=== PATIENT | female | born 1965 | race Caucasian/White ===

== ENCOUNTER → 2016-09-04 | Outpatient (CLI) | payer BC ==
--- NOTE | 2016-09-05 14:49 | MM ---
Reason for exam: screening (asymptomatic). Last mammogram was performed 1 year ago. History: Patient is nulliparous. Family history of breast cancer in mother at age 84. Physical Findings: A clinical breast exam by your physician is recommended on an annual basis and results should be correlated with mammographic findings. MG 3D Screening Mammo W/Cad Bilateral CC and MLO view(s) were taken. Prior study comparison: September 03, 2015, bilateral MG 3d screening mammo w/cad. August 21, 2014, bilateral MG diagnostic mammo w CAD YANIRA. August 18, 2013, CAD bilateral diagnostic mammogram. The breast tissue is extremely dense which could obscure a lesion on mammography. No significant changes when compared with prior studies. ASSESSMENT: Negative, BI-RAD 1 RECOMMENDATION: Routine screening mammogram of both breasts in 1 year. Patient should continue monthly self breast exam. A negative mammogram should not preclude additional follow up of suspicious palpable abnormality.
== END | disposition home or self-care (01) ==
LOC: RADMAMWWP 15:02
PROVIDERS: ATTEND Family Medicine
DX: Z12.31 Encounter for screening mammogram for malignant neoplasm of breast (principal); Z80.3 Family history of malignant neoplasm of breast
CPT/HCPCS: 77063; G0202

== ENCOUNTER → 2017-10-09 | Outpatient (CLI) | payer BC ==
--- NOTE | 2017-10-13 10:29 | MM ---
Reason for exam: screening (asymptomatic). Last mammogram was performed 1 year and 1 month ago. History: Patient is nulliparous. Family history of breast cancer in mother at age 84. Physical Findings: A clinical breast exam by your physician is recommended on an annual basis and results should be correlated with mammographic findings. MG 3D Screening Mammo W/Cad Bilateral CC and MLO view(s) were taken. Prior study comparison: September 04, 2016, bilateral MG 3d screening mammo w/ cad. September 03, 2015, bilateral MG 3d screening mammo w/cad. The breast tissue is extremely dense which could obscure a lesion on mammography. Very dense tissues. No significant changes when compared with prior studies. ASSESSMENT: Negative, BI-RAD 1 RECOMMENDATION: 1. Routine screening mammogram of both breasts in 1 year. 2. Patient should continue monthly self breast exams. 3. A negative mammogram should not preclude additional follow of suspicious palpable abnormalities. HALIMA
== END | disposition home or self-care (01) ==
LOC: RADMAMWWP 15:28
PROVIDERS: ATTEND Surgery
DX: Z12.31 Encounter for screening mammogram for malignant neoplasm of breast (principal)
CPT/HCPCS: 77063; 77067

== ENCOUNTER → 2018-10-29 | Outpatient (CLI) | payer BC ==
[2018-10-29 15:06] VITALS: BP 132/85; PULSE 64; RESP 16; TEMP 96.2; BMI 19.8
--- NOTE | 2018-10-29 15:42 | P.GSHP ---
History of Present Illness H&P Date: 10/29/18 Chief Complaint: fibrocystic disease Kaylene is a 53-year-old white female who presents for breast examination. She had a bilateral mammogram performed on . This was a negative BIRADS 1. The patient denies any masses in her breast. She has no pain in her breasts. No nipple discharge or skin changes. She is scheduled for a bilateral mammogram on . The patient does drink one cup of coffee per day. She is presently weaning herself from caffeine. She does not eat chocolate frequently. Karis Risk 5 year risk: 2.3% lifetime risk: 19.3% We have discussed genetic evaluation or counseling for chemoprevention at this time the patient is not interested. Family history: 1.mother: breast cancer at 85 Hormonal history: Menarche:14 : none menopause: November 2015, at 51 BCP: 2 years hormones: none Past surgical history: 1. wisdom teeth Past Medical History: negative Social History: smoke: none alcohol:daily/3-4 beers/day drugs: none - Constitutional Constitutional: Reports sweats - EENT Eyes: Ears: Ears, nose, mouth and throat: Denies headache, Denies sore throat - Breasts Breasts: - Cardiovascular Cardiovascular: Denies chest pain, Denies shortness of breath - Respiratory Respiratory: Denies cough, Denies 7 - Gastrointestinal Gastrointestinal: Denies abdominal pain, Denies diarrhea, Denies nausea, Denies vomiting - Genitourinary (Female) Genitourinary: Denies dysuria, Denies hematuria - Menstruation Menstruation: Reports postmenopausal - Musculoskeletal Musculoskeletal: Denies myalgias - Integumentary Integumentary: Reports pruritus, Denies rash - Neurological Neurological: Denies numbness, Denies weakness - Psychiatric Psychiatric: Reports anxiety, Denies depression - Endocrine Endocrine: Denies fatigue, Denies weight change - Hematologic/Lymphatic Comment: none - Allergic/Immunologic Comment: atopic dermatitis Past Medical History History of Any Multi-Drug Resistant Organisms: None Reported Smoking Status: Never smoker Medications and Allergies Home Medications Medication Instructions Recorded Confirmed Type Multivitamin [Multivitamins Adult 1 each PO 10/29/18 History Gummies] Allergies Allergy/AdvReac Type Severity Reaction Status Date / Time tetracycline [Tetracycline] Allergy Unknown Rash/Hives Verified 10/29/18 15:07 Surgical - Exam Vital Signs Temp Pulse Resp BP Pulse Ox 96.2 F L 64 16 132/85 100 10/29/18 15:03 10/29/18 15:03 10/29/18 15:03 10/29/18 15:03 10/29/18 15:03 BMI 19.8 - General well developed, well nourished, no distress - Eyes normal ocular movement - ENT no hearing loss, no congestion - Neck no masses, trachea midline - Respiratory normal respiratory effort, clear to auscultation - Cardiovascular Rhythm: regular Heart Sounds: - Abdomen Abdomen: soft, non tender, no guarding, no rigid, no rebound - Integumentary no rash, no abnormal pigmentation - Neurologic no disoriented, no combative - Musculoskeletal normal gait - Psychiatric oriented to time, oriented to person, oriented to place, speech is normal, memory intact breast exam: Right breast: Multi-positional exam dense fibrocystic breast changes, increased nodularity upper outer quadrant area most likely consistent with a cyst Right axilla: No adenopathy of concern Left breast: Multi-positional exam fibrocystic breast changes Left axilla: No adenopathy of concern Assessment and Plan Assessment: Impression: 1. Family history of breast cancer 2. Fibrocystic breast changes 3. Increased nodularity right breast upper outer quadrant area 4. increased risk for breast cancer Plan: 1. Patient is going to have a bilateral mammogram on 2. Would recommend ultrasound of the right breast 3. Consider aspiration of right breast upper outer quadrant area after radiographs are performed 4. Follow-up after mammogram and ultrasound performed 5. Patient is going to stop caffeine intake. Discussed that this may help with fibrocystic breast changes 6. Patient is not interested in genetic counseling for chemoprevention at this time CC: Dr. Colin
== END | disposition home or self-care (01) ==
LOC: WWCWWP 14:53
PROVIDERS: ATTEND Surgery
DX: Z53.9 Procedure and treatment not carried out, unspecified reason (principal)

== ENCOUNTER → 2018-11-04 | Outpatient (CLI) | payer BC ==
--- NOTE | 2018-11-04 09:47 | MM ---
Reason for exam: additional evaluation requested from prior study. Last mammogram was performed 1 year and 1 month ago. History: Patient is postmenopausal and is nulliparous. Family history of breast cancer in mother at age 84. Physical Findings: Nurse Summary: 1.5cm nodule in the right breast at 10-11 o'clock and a 1cm nodule in the left breast at 1 o'clock (nurse mj). MG 3D Diag Mammo W/Cad YANIRA Bilateral CC and MLO view(s) were taken. Prior study comparison: October 09, 2017, bilateral MG 3d screening mammo w/cad. September 04, 2016, bilateral MG 3d screening mammo w/cad. The breast tissue is extremely dense which could obscure a lesion on mammography. Finding: There are typically benign round, regional calcifications in the upper outer quadrant of both breasts. There is no dominant lesion. These results were verbally communicated with the patient and result sheet given to the patient on 11/04/18. ASSESSMENT: Incomplete: need additional imaging evaluation, BI-RAD 0 RECOMMENDATION: Ultrasound of both breasts. (extensive dense tissue and palpables)
--- NOTE | 2018-11-04 09:54 | USB ---
Reason for exam: additional evaluation requested from abnormal screening. History: Patient is postmenopausal and is nulliparous. Family history of breast cancer in mother at age 84. US Breast Limited BILAT Right complete breast ultrasound includes all four quadrants, the retroareolar region and axilla. Finding demonstrates a 0.7 x 0.8 x 0.3cm oval, cystic lesion at 10 o'clock. Left limited breast ultrasound including focal area of concern, retroareolar and axilla demonstrates no cystic or solid lesion seen. No findings. Dense tissue. These results were verbally communicated with the patient and result sheet given to the patient on 11/04/18. ASSESSMENT: Benign, BI-RAD 2 RECOMMENDATION: Routine screening mammogram of both breasts in 1 year.
== END | disposition home or self-care (01) ==
LOC: RADMAMWWP 07:43
PROVIDERS: ATTEND Surgery
DX: R92.8 Other abnormal and inconclusive findings on diagnostic imaging of breast (principal)
CPT/HCPCS: 77062; 77066

== ENCOUNTER → 2019-11-07 | Outpatient (CLI) | payer BC ==
--- NOTE | 2019-11-08 07:00 | CT ---
EXAMINATION TYPE: CT abdomen pelvis w con DATE OF EXAM: 11/07/2019 HISTORY: Abdominal and pelvic pain. Abdominal pain for over [address] DLP: 371.8mGycm Automated Exposure Control for Dose Reduction was Utilized. CONTRAST: CT scan of the abdomen and pelvis is performed with oral and with IV Contrast, patient injected with 100ml mL of Isovue 300. COMPARISON: None. FINDINGS: LUNG BASES: No significant abnormality is appreciated. LIVER/GB: No significant abnormality is appreciated. PANCREAS: No significant abnormality is seen. SPLEEN: No significant abnormality is seen. ADRENALS: No significant abnormality is seen. KIDNEYS: Symmetric cortical medullary uptake and excretion without hydronephrosis seen bilaterally. BOWEL: The oral contrast reaches level of the proximal redundant sigmoid colon. There is no suspiciou s small or large bowel dilatation. Normal contrast-filled appendix extending medially from the base o f cecum in the right pelvis. UTERUS/ADNEXA: Heterogeneous anteverted uterus. Normal-sized ovaries and the adnexa. LYMPH NODES: No greater than 1cm abdominal or pelvic lymph nodes are appreciated. OSSEOUS STRUCTURES: Advanced disc space narrowing lumbosacral junction. Moderate disc space narrowing with moderate to severe anterior and left lateral spurring L2-L3 level. Left paracentral posterior d isc herniation effaces the anterior thecal sac at this level axial image 28. Few scattered small scle rotic foci right iliac bone coronal image 44 and left superior pelvic ramus near acetabulum coronal i mage 27 and a nonspecific favor benign bone islands. Asymmetric moderate acetabular spurring left hip joint with mild to moderate joint space loss both hips. OTHER: No significant additional abnormality is seen. IMPRESSION: No significant acute finding is seen to account for patient's clinical symptoms of abdomi nal pain..
== END | disposition home or self-care (01) ==
LOC: RADCTMAIN 14:42
PROVIDERS: ATTEND Family Medicine
DX: R10.9 Unspecified abdominal pain (principal)
CPT/HCPCS: 74177; Q9967

== ENCOUNTER 2020-04-12 22:31 | Emergency (ER) | payer BC ==
[2020-04-12 22:41] VITALS: RESP 18
[2020-04-12] MEDS ORDERED: diphenhydrAMINE 50 MG CAP PO STA (23:05)
--- NOTE | 2020-04-12 23:10 | ED ---
Skin/Abscess/FB HPI - General Chief complaint: Skin/Abscess/Foreign Body Stated complaint: Poison Charito Time Seen by Provider: 04/12/20 22:47 Source: patient Mode of arrival: ambulatory Limitations: no limitations - History of Present Illness Initial comments: Patient is a 55-year-old female presenting to the emergency department with chief complaint of poison charito. Patient states earlier today she was picking weeds and took a warm shower and afterwards she developed a rash on bilateral hands and forearms. Patient states it is quite itchy but it is not painful. She denies any discharge. States this is not erythematous. Denies any fevers or chills. Denies taking medication to alleviate the symptoms. Patient is concerned for poison charito but denies any formation of vesicles on the lesions. States the symptoms were increased after she took a warm shower. - Related Data Home Medications Medication Instructions Recorded Confirmed Multivitamin [Multivitamins Adult 1 each PO 10/29/18 Gummies] Previous Rx's Medication Instructions Recorded predniSONE 50 mg PO DAILY #5 tab 04/12/20 Allergies Allergy/AdvReac Type Severity Reaction Status Date / Time tetracycline [Tetracycline] Allergy Unknown Rash/Hives Verified 04/12/20 22:41 Review of Systems ROS Statement: Those systems with pertinent positive or pertinent negative responses have been documented in the HPI. ROS Other: All systems not noted in ROS Statement are negative. Past Medical History Past Medical History: No Reported History History of Any Multi-Drug Resistant Organisms: None Reported Past Surgical History: No Surgical Hx Reported Past Psychological History: No Psychological Hx Reported Smoking Status: Never smoker Past Alcohol Use History: Occasional Past Drug Use History: None Reported General Exam Limitations: no limitations General appearance: alert, in no apparent distress Head exam: Present: atraumatic, normocephalic, normal inspection Eye exam: Present: normal appearance, PERRL, EOMI Pupils: Present: normal accommodation ENT exam: Present: normal exam, normal oropharynx, mucous membranes moist Neck exam: Present: normal inspection, full ROM. Absent: tenderness Respiratory exam: Present: normal lung sounds bilaterally. Absent: respiratory distress, wheezes Cardiovascular Exam: Present: regular rate, normal rhythm, normal heart sounds Extremities exam: Present: normal inspection, full ROM. Absent: tenderness Back exam: Present: normal inspection, full ROM. Absent: tenderness Neurological exam: Present: alert, oriented X3 Psychiatric exam: Present: normal affect, normal mood Skin exam: Present: warm, dry, intact, normal color, rash (Rash in bilateral upper extremities up to the forearm. No vesicle formation or any discharge. This is not consistent with poison charito. Intermittent wheal formation. These do not appear to be infected.), urticaria Course Vital Signs 04/12/20 04/12/20 22:38 23:30 Temperature 97.9 F 97.5 F L Pulse Rate 80 91 Respiratory 18 18 Rate Blood Pressure 126/88 134/92 O2 Sat by Pulse 99 100 Oximetry Medical Decision Making - Medical Decision Making Patient is a 55-year-old female presenting to the emergency department with a chief complaint of poison charito. On exam there is intermittent wheal formation and bilateral upper extremity. She was pulling weeds out today and developed the rash several hours later after she took a shower. This is not consistent with poison charito which typically is a delayed hypersensitivity reaction. This appears to more urticaria-like in nature. Patient given Benadryl and 60 mg of prednisone. She was advised to take cool showers at home. She'll also be discharged with a 5 day prednisone course. Strict return parameters thoroughly discussed the patient was understanding ago. Case discussed with physician. Disposition Clinical Impression: Hives, Rash and nonspecific skin eruption Disposition: HOME SELF-CARE Condition: Stable Instructions (If sedation given, give patient instructions): Urticaria (ED), Cold Compress or Soak (ED) Additional Instructions: Take prescribed medication as directed. Take Tylenol for itching. Follow-up with her primary care physician. Return to emergency department if symptoms worsen. Prescriptions: predniSONE 50 mg PO DAILY #5 tab Is patient prescribed a controlled substance at d/c from ED?: No Referrals: Toan Colin DO [Primary Care Provider] - 1-2 days Time of Disposition: 23:24
[2020-04-12] MEDS ORDERED: predniSONE 20 MG TAB PO STA (23:22)
[2020-04-12 23:32] VITALS: BP 134/92; PULSE 91; TEMP 97.5
== END 2020-04-12 23:38 | disposition home or self-care (01) ==
LOC: EC 22:31
DX: L50.9 Urticaria, unspecified (principal); Z88.1 Allergy status to other antibiotic agents
CPT/HCPCS: 99282; J7512

== ENCOUNTER → 2021-06-27 | Outpatient (CLI) | payer BC ==
--- NOTE | 2021-07-01 09:54 | MM ---
Reason for exam: screening (asymptomatic). Last mammogram was performed 1 year and 1 month ago. History: Patient is postmenopausal and is nulliparous. Family history of breast cancer in mother at age 84. Physical Findings: A clinical breast exam by your physician is recommended on an annual basis and results should be correlated with mammographic findings. MG 3D Screening Mammo W/Cad Bilateral CC and MLO view(s) were taken. Prior study comparison: May 28, 2020, bilateral MG 3d screening mammo w/cad. November 04, 2018, bilateral MG 3d diag mammo w/cad YANIRA. The breast tissue is extremely dense which could obscure a lesion on mammography. Finding: There are diffuse/scattered, fine calcifications in the left breast. No significant changes in finding since May 28, 2020 and November 04, 2018. ASSESSMENT: Benign, BI-RAD 2 RECOMMENDATION: Routine screening mammogram of both breasts in 1 year.
== END | disposition home or self-care (01) ==
LOC: RADMAMWWP 13:38
PROVIDERS: ATTEND Surgery
DX: Z12.31 Encounter for screening mammogram for malignant neoplasm of breast (principal); Z80.3 Family history of malignant neoplasm of breast; Z78.0 Asymptomatic menopausal state
CPT/HCPCS: 77063; 77067

== ENCOUNTER → 2021-06-28 | Day surgery (SDC) | payer BC ==
[2021-06-27 08:52] VITALS: BMI 18.5
[~2021-06-28] MED LIST: LACTATED RINGERS 1,000 ML IV SCH; LIDOCAINE 1% (10MG/ML) FOR IV START INTRADERMA PRN; LIDOCAINE 1% INJ 10MG/ML (20 ML MDV) ONE; PROPOFOL 10 MG/ML 20 ML VIAL IV ONE
--- NOTE | 2021-06-28 09:51 | P.HPIHPCON ---
History of Present Illness H&P Date: 06/28/21 56-year-old female presents today for upper endoscopy. She has had recent finding of dysphagia with feeling as if pills are being lodged in the back of her throat. She states this does not happen all the time. She denies any significant heartburn issues. She does complain of excessive belching. Denies abdominal pain. Consent for Procedure: I have explained the operation/procedure to the patient, including the risks, benefits, side effects, alternative therapies (including not receiving the proposed treatment or service), the likelihood of the patient achieving his/her goals, and potential recuperation problems for the procedure/sedation/analgesia, as well as any blood products, if indicated. I also explained to the patient the risks, benefits and side effects of the alternatives, as well as the risks related to not receiving the proposed procedure, care, treatment, or services. - Review of Systems All systems: negative Past Medical History Past Medical History: Skin Disorder Additional Past Medical History / Comment(s): ECZEMA. FOOD GETS STUCK IN THROAT AT TIMES History of Any Multi-Drug Resistant Organisms: None Reported Past Surgical History: No Surgical Hx Reported Additional Past Surgical History / Comment(s): WISDOM TEETH UNDER ANESTHESIA. COLONOSCOPY Past Anesthesia/Blood Transfusion Reactions: No Reported Reaction Smoking Status: Never smoker - Past Family History Mother Family Medical History: Cancer Additional Family Medical History / Comment(s): BREAST Medications and Allergies Home Medications Medication Instructions Recorded Confirmed Type Dupilumab [Dupixent Pen] 300 mg SQ Q14D 06/27/21 06/28/21 History L.acidoph,Paracasei, B.lactis 1 each PO DAILY 06/27/21 06/28/21 History [Probiotic] Allergies Allergy/AdvReac Type Severity Reaction Status Date / Time tetracycline [Tetracycline] Allergy Unknown Rash/Hives Verified 06/28/21 09:41 Surgical - Exam Osteopathic Statement: *. No significant issues noted on an osteopathic structural exam other than those noted in the History and Physical/Consult. - General well nourished - Eyes normal ocular movement - ENT no hearing loss - Neck trachea midline - Respiratory normal respiratory effort - Abdomen Abdomen: soft, non tender Assessment and Plan Plan: Plan is for upper endoscopy. Risks, benefits and alternatives were provided to patient. She did provide consent. Further recommendations after procedure is completed.
--- NOTE | 2021-06-28 10:01 | P.PCN ---
Date of Procedure: 06/28/21 Preoperative Diagnosis: Dysphagia Postoperative Diagnosis: Gastritis Duodenitis Procedure(s) Performed: EGD with biopsy Anesthesia: DEVEN Surgeon: Todd Bernardo Pathology: other (Biopsies of esophagus, antrum, duodenum) Condition: stable Disposition: same day Indications for Procedure: 56-year-old female presents with complaints of dysphagia with pills getting stuck in the back of her throat. States this does not happen all the time. Denies any seen and heartburn issues. Also complains of belching. Operative Findings: Inflammatory changes of the stomach/antrum, duodenum Description of Procedure: The patient was brought to the endoscopy suite and placed in left lateral decubitus position and adequate sedation was achieved using conscious sedation. A bite block was placed and an endoscope was placed in the oropharynx and advanced under endoscopic visualization. The endoscope was advanced through the esophagus into the stomach, through the gastric antrum and into the pylorus. The third portion of the duodenum was visualized. The endoscope was then slowly withdrawn. The first portion the duodenum was noted to have inflammatory changes. Biopsies were taken. The antrum was noted to have inflammatory changes. Biopsies were taken. The gastric body distended normally and the gastric folds appeared normal and flattened with insufflation. A retroflexed view of the fundus and GE junction revealed no significant hiatal hernia. The esophagus appeared endoscopically normal and widely patent. No evidence of stenosis or stricture of the entire esophagus. Excess air was removed and the scope was withdrawn and the procedure was completed. The patient was then sent to postanesthesia care unit in stable condition.
[2021-06-28 10:28] VITALS: BP 142/89; PULSE 75; RESP 18
== END | disposition home or self-care (01) ==
LOC: ORWHC2ENDO 08:48
PROVIDERS: ATTEND Surgery
DX: K29.70 Gastritis, unspecified, without bleeding (principal); K29.80 Duodenitis without bleeding; K20.90 Esophagitis, unspecified without bleeding
CPT/HCPCS: 43239; 88305; J2001; J2704

== ENCOUNTER → 2021-07-04 | Outpatient (CLI) | payer BC ==
[2021-07-04 14:58] VITALS: BP 126/78; PULSE 63; RESP 16; TEMP 98.1
--- NOTE | 2021-07-04 15:31 | P.PN ---
Subjective Progress Note Date: 07/04/21 Principal diagnosis: fibrocystic breast changes Kaylene is a 56-year-old white female who presents for breast examination. She had a bilateral mammogram performed on 06-27-21 this was a benign BIRADS 2. The patient denies any masses in her breast. She has no pain in her breasts. No nipple discharge or skin changes. She is scheduled for a bilateral mammogram on . The patient does drink one cup of coffee per day. nicotine: Negative chocolate: occasional Family history: mother: breast cancer at 85 Hormonal history: Menarche:14 : none menopause: November 2015, at 51 BCP: 2 years hormones: none Past surgical history: wisdom teeth Past Medical History: negative Social History: smoke: none alcohol:daily/3-4 beers/day drugs: none - Constitutional Constitutional: Reports sweats - EENT Eyes: Ears: Ears, nose, mouth and throat: Denies headache, Denies sore throat - Breasts Breasts: - Cardiovascular Cardiovascular: Denies chest pain, Denies shortness of breath - Respiratory Respiratory: Denies cough - Gastrointestinal Gastrointestinal: Denies abdominal pain, Denies diarrhea, Denies nausea, Denies vomiting - Genitourinary (Female) Genitourinary: Denies dysuria, Denies hematuria - Menstruation Menstruation: Reports postmenopausal - Musculoskeletal Musculoskeletal: Denies myalgias - Integumentary Integumentary: Reports pruritus, Denies rash - Neurological Neurological: Denies numbness, Denies weakness - Psychiatric Psychiatric: Reports anxiety, Denies depression - Endocrine Endocrine: Denies fatigue, Denies weight change - Hematologic/Lymphatic Comment: none - Allergic/Immunologic Comment: atopic dermatitis Objective - Vital Signs Vital signs: Vital Signs Temp 98.1 F 07/04/21 14:55 Pulse 63 07/04/21 14:55 Resp 16 07/04/21 14:55 BP 126/78 07/04/21 14:55 Pulse Ox 98 07/04/21 14:55 Intake & Output 07/03/21 07/04/21 07/04/21 18:59 06:59 18:59 Weight 54.431 kg - Exam BMI 18.5 - Constitutional General appearance: Present: cooperative - EENT Eyes: Present: EOMI ENT: Present: hearing grossly normal - Neck Neck: Present: normal ROM - Respiratory Respiratory: bilateral: CTA - Cardiovascular Rhythm: regular Heart sounds: normal: S1, S2 - Integumentary Integumentary: Present: normal turgor - Musculoskeletal Musculoskeletal: Present: gait normal - Psychiatric Psychiatric: Present: A&O x's 3, appropriate affect, intact judgment & insight - Additional findings Additional findings: Breast Exam: BRA: 36B Inspection: Bilateral grade 2 ptosis Palpation: Right breast: Dense breasts, multiple positional exam fibrocystic changes Right axilla: No adenopathy of concern Left breast: Dense breasts, multiple positional exam fibrocystic changes no dominant masses or nodules of concern Left axilla: No adenopathy of concern Assessment and Plan Assessment: Impression: Fibrocystic breast changes Recent bilateral mammogram BIRADS 2 Plan: Repeat bilateral mammogram and physician exam in 1 year Cc: Dr. Colin
== END ==
LOC: WWCWWP 14:30
PROVIDERS: ATTEND Surgery
DX: N60.11 Diffuse cystic mastopathy of right breast (principal)

== ENCOUNTER → 2022-06-30 | Outpatient (CLI) | payer BC ==
--- NOTE | 2022-07-01 17:08 | MM ---
Reason for Exam: Screening (asymptomatic). Last screening mammogram was performed 12 month(s) ago. Patient History: Menarche at age 15. Patient has no children. Postmenopausal. Mother had breast cancer, age 84. Risk Values: Karis 5 year model risk: 2.3%. NCI Lifetime model risk: 15.5%. Prior Study Comparison: 11/04/2018 Bilateral Diagnostic Mammogram, [facility]. 05/28/2020 Bilateral Screening Mammogram, [facility]. 06/27/2021 Bilateral Screening Mammogram, [facility]. Tissue Density: The breast tissue is extremely dense which could obscure a lesion on mammography. Findings: Analyzed By CAD. Pattern appears stable. Scattered punctate calcifications are present bilaterally. No suspicious groups of microcalcifications, spiculated or lobular masses, architectural distortion or other secondary signs of malignancy are mammographically apparent. Overall Assessment: Benign, BI-RAD 2 Management: Screening Mammogram of both breasts in 1 year. A negative mammogram report should not preclude additional follow up of suspicious palpable abnormalities. Patient should continue monthly self breast exam. A clinical breast exam by your physician is recommended on an annual basis and results should be correlated with mammographic findings. Electronically signed and approved by: Zeeshan Russell D.O. Radiologis
== END | disposition home or self-care (01) ==
LOC: RADMAMWWP 08:48
PROVIDERS: ATTEND Surgery
DX: Z12.31 Encounter for screening mammogram for malignant neoplasm of breast (principal); Z78.0 Asymptomatic menopausal state; Z80.3 Family history of malignant neoplasm of breast
CPT/HCPCS: 77063; 77067

== ENCOUNTER → 2022-07-04 | Outpatient (CLI) | payer BC ==
[2022-07-04 09:50] VITALS: BP 133/89; PULSE 56; RESP 17; TEMP 97.8
--- NOTE | 2022-07-04 10:12 | P.PN ---
Subjective Progress Note Date: 07/04/22 Principal diagnosis: fibocystic breast changes fibrocystic breast changes Kaylene is a 57-year-old white female who presents for breast examination. She had a bilateral mammogram performed on 06-30-22 this was a benign BIRADS 2. The patient denies any masses in her breast. She has no pain in her breasts. No nipple discharge or skin changes. The patient does drink one cup of coffee per day. nicotine: Negative chocolate: occasional Family history: mother: breast cancer at 85 Hormonal history: Menarche:14 : none menopause: November 2015, at 51 BCP: 2 years hormones: none Past surgical history: wisdom teeth Past Medical History: negative Social History: smoke: none alcohol:daily/3-4 beers/day drugs: none - Constitutional Constitutional: Reports sweats - EENT Eyes: Ears: Ears, nose, mouth and throat: Denies headache, Denies sore throat - Breasts Breasts: - Cardiovascular Cardiovascular: Denies chest pain, Denies shortness of breath - Respiratory Respiratory: Denies cough - Gastrointestinal Gastrointestinal: Denies abdominal pain, Denies diarrhea, Denies nausea, Denies vomiting - Genitourinary (Female) Genitourinary: Denies dysuria, Denies hematuria - Menstruation Menstruation: Reports postmenopausal - Musculoskeletal Musculoskeletal: Denies myalgias - Integumentary Integumentary: Reports pruritus, Denies rash - Neurological Neurological: Denies numbness, Denies weakness - Psychiatric Psychiatric: Reports anxiety, Denies depression - Endocrine Endocrine: Denies fatigue, Denies weight change - Hematologic/Lymphatic Comment: none - Allergic/Immunologic Comment: atopic dermatitis Objective - Vital Signs Vital signs: Vital Signs Temp 97.8 F 07/04/22 09:48 Pulse 56 L 07/04/22 09:48 Resp 17 07/04/22 09:48 BP 133/89 07/04/22 09:48 Pulse Ox 99 07/04/22 09:48 FiO2 Intake & Output 07/03/22 07/04/22 07/04/22 18:59 06:59 18:59 Weight 54.431 kg - Exam BMI: 18.2 - Constitutional General appearance: Present: cooperative - EENT Eyes: Present: EOMI ENT: Present: hearing grossly normal - Neck Neck: Present: normal ROM - Respiratory Respiratory: bilateral: CTA - Cardiovascular Rhythm: regular Heart sounds: normal: S1, S2 - Integumentary Integumentary: Present: normal turgor - Musculoskeletal Musculoskeletal: Present: gait normal - Psychiatric Psychiatric: Present: A&O x's 3, appropriate affect, intact judgment & insight - Additional findings Additional findings: Breast Exam: BRA: 34B Inspection: Bilateral grade 2 ptosis Palpation: Right breast: Multiple positional exam extremely dense breast with nodularity believed to be fibrocystic change Right axilla: Shoddy adenopathy Left breast: Multiple positional exam extremely dense breast with nodularity believed to be fibrocystic change Left axilla: No adenopathy of concern Assessment and Plan Assessment: Impression: Dense fibrocystic breast Bilateral mammogram [id number] benign BIRADS 2 Conchis risk 2.3% We have discussed hormone chemoprevention and the patient has declined Plan: Bilateral breast ultrasound secondary to the very dense breast If the breast ultrasound is benign BIRADS 2 CC: DR. Toan Colin
== END | disposition home or self-care (01) ==
LOC: WWCWWP 09:31
PROVIDERS: ATTEND Surgery
DX: Z53.9 Procedure and treatment not carried out, unspecified reason (principal)

== ENCOUNTER → 2022-07-10 | Outpatient (CLI) | payer BC ==
--- NOTE | 2022-07-10 08:58 | USB ---
Reason for Exam: Clinical finding. Patient History: Menarche at age 15. Patient has no children. Postmenopausal. Mother had breast cancer, age 84. Risk Values: Karis 5 year model risk: 2.3%. NCI Lifetime model risk: 15.5%. Technique: Method: Whole Breast Handheld. Prior Study Comparison: 05/28/2020 Bilateral Screening Mammogram, [facility]. 06/27/2021 Bilateral Screening Mammogram, [facility]. 06/30/2022 Bilateral MG 3D screening mammo w/cad, [facility]. Findings: The whole breast of both breasts, the axilla of both breasts and the retroareolar of both breasts were scanned. A complete US of all four quadrants of both breasts, axilla, and retro-areolar region were reviewed. No solid or cystic masses are identified. No axillary lymphadenopathy or duct ectasia. Very dense tissues are present throughout. Overall Assessment: Benign, BI-RAD 2 Management: Screening Mammogram of both breasts in 1 year. The patient may continue to have supplementary breast screening ultrasound given the extremely dense breast tissues. Patient should continue monthly self breast exams this exam should not preclude additional follow-up of suspicious palpable abnormalities. Results were given to the patient verbally at the time of exam. Note that per NCCN guidelines, a five-year risk assessment greater than 1.67% is used to assess eligibility for a risk reducing agent. Electronically signed and approved by: Michelle Gomez M.D. Radiologist
[2022-07-10 09:02] VITALS: BP 130/86; PULSE 71; RESP 17; TEMP 97.8
--- NOTE | 2022-07-10 09:59 | P.PN ---
Progress Note - Text Progress Note Date: 07/10/22 Bilateral breast ultrasound was performed today secondary to the dense breast. This was reviewed personally with Dr. Gomez and it was felt that the lesions of concern were identified and a repeat bilateral mammogram in 1 year as well as bilateral ultrasound can be performed. The patient notes any changes she will call us sooner. The patient is aware.
== END | disposition home or self-care (01) ==
LOC: RADUSWWP 08:16
PROVIDERS: ATTEND Surgery
DX: R92.8 Other abnormal and inconclusive findings on diagnostic imaging of breast (principal); Z78.0 Asymptomatic menopausal state; Z80.3 Family history of malignant neoplasm of breast

== ENCOUNTER → 2023-07-13 | Outpatient (CLI) | payer BC ==
--- NOTE | 2023-07-13 08:42 | MM ---
Reason for Exam: Additional evaluation requested from prior study. Last screening mammogram was performed 12 month(s) ago. Patient History: Menarche at age 15. Patient has no children. Postmenopausal. Mother had breast cancer, age 84. Risk Values: Karis 5 year model risk: 2.4%. NCI Lifetime model risk: 15.2%. Prior Study Comparison: 09/03/2015 Bilateral Screening Mammogram, [facility]. 10/09/2017 Bilateral Screening Mammogram, [facility]. 11/04/2018 Bilateral Diagnostic Mammogram, [facility]. 05/28/2020 Bilateral Screening Mammogram, [facility]. 06/27/2021 Bilateral Screening Mammogram, [facility]. 06/30/2022 Bilateral MG 3D screening mammo w/cad, [facility]. 07/10/2022 Bilateral US breast BILAT, [facility]. Tissue Density: The breast tissue is extremely dense which could obscure a lesion on mammography. Findings: Analyzed By CAD. No evidence for distinct mass or distortion. Scattered benign calcifications. Overall Assessment: Incomplete: need additional imaging evaluation, BI-RAD 0 Management: Diagnostic Breast Ultrasound of both breasts. . Results were given to the patient verbally at the time of exam. Patient should continue monthly self-breast exams. A clinical breast exam by your physician is recommended on an annual basis. This exam should not preclude additional follow-up of suspicious palpable abnormalities. Note on Karis scores and lifetime risk: 1. A Karis score greater than 3% is considered moderate risk. If this is the case, consider specialist referral to assess eligibility for a risk reducing agent. 2. If overall lifetime risk for the development of breast cancer is 20% or higher, the patient may qualify for future screening with alternating mammogram and breast MRI. Electronically signed and approved by: Ulises Diggs M.D. Radiologis
--- NOTE | 2023-07-13 09:07 | USB ---
Reason for Exam: Additional evaluation requested from prior study. Patient History: Menarche at age 15. Patient has no children. Postmenopausal. Mother had breast cancer, age 84. Risk Values: Karis 5 year model risk: 2.4%. NCI Lifetime model risk: 15.2%. Technique: Method: Whole Breast Handheld. Prior Study Comparison: 05/28/2020 Bilateral Screening Mammogram, [facility]. 06/27/2021 Bilateral Screening Mammogram, [facility]. 06/30/2022 Bilateral MG 3D screening mammo w/cad, [facility]. Findings: The whole breast of both breasts, the axilla of both breasts and the retroareolar of both breasts were scanned. No solid or cystic masses are identified.. Overall Assessment: Negative, BI-RAD 1 Management: Screening Mammogram of both breasts in 1 year. A clinical breast exam by your physician is recommended on an annual basis and results should be correlated with mammographic findings. This exam should not preclude additional follow-up of suspicious palpable abnormalities. Results were given to the patient verbally at the time of exam. Electronically signed and approved by: Ulises Dgigs M.D. Radiologis
== END | disposition home or self-care (01) ==
LOC: RADMAMWWP 08:07
PROVIDERS: ATTEND Surgery
DX: R92.343 Mammographic extreme density, bilateral breasts (principal); Z78.0 Asymptomatic menopausal state; Z80.3 Family history of malignant neoplasm of breast
CPT/HCPCS: 77062; 77066

== ENCOUNTER 2023-07-21 10:29 | Day surgery (SDC) | payer BC ==
[2023-07-20 08:56] VITALS: BMI 18.2
[~2023-07-21 10:29] MED LIST changes: -LIDOCAINE 1% (10MG/ML) FOR IV START INTRADERMA PRN; -LIDOCAINE 1% INJ 10MG/ML (20 ML MDV) ONE; -PROPOFOL 10 MG/ML 20 ML VIAL IV ONE
[2023-07-21 11:03] VITALS: RESP 16; TEMP 98.2
[2023-07-21] MEDS ORDERED: PROPOFOL 10 MG/ML 20 ML VIAL IV ONE (11:47)
--- NOTE | 2023-07-21 12:02 | P.PCN ---
Date of Procedure: 07/21/23 Procedure(s) Performed: BRIEF HISTORY: Patient is a 58-year-old pleasant white female scheduled for an elective colonoscopy as a part of screening for colon cancer. PROCEDURE PERFORMED: Colonoscopy with snare polypectomy. PREOPERATIVE DIAGNOSIS: Screening for colon cancer. IV sedation per Anesthesia. PROCEDURE: After informed consent was obtained, the patient, was brought into the endoscopy unit. IV sedation was administered by Anesthesia under continuous monitoring. Digital rectal examination was normal. Initially the Olympus CF-160 flexible video colonoscope was then inserted in the rectum, gradually advanced into the cecum without any difficulty. Careful examination was performed as the scope was gradually being withdrawn. Ileocecal valve and the appendiceal orifice were visualized and appeared normal. Prep was excellent. Mucosa of the cecum, ascending colon, transverse colon, appeared normal. In the descending colon there was a 1.5 cm broad-based polyp that was removed by piecemeal snare polypectomy and complete polypectomy accomplished. Rest of the scattered sigmoidal diverticulosis. descending colon, sigmoid colon, and rectum appeared normal. Retroflexion was performed in the rectum and no lesions were seen. The patient tolerated the procedure well. IMPRESSION: 1.5 cm broad-based descending colon polyp status post snare polypectomy Scattered sigmoid diverticulosis RECOMMENDATIONS: Findings of this examination were discussed with the patient as well as a family. She was advised to follow up with the biopsy results. If the biopsy is adenoma she can have a repeat colonoscopy in 3 years..
[2023-07-21 12:35] VITALS: BP 137/87; PULSE 79
== END 2023-07-21 12:46 | disposition home or self-care (01) ==
LOC: ORWHC2ENDO 10:29
PROVIDERS: ATTEND Internal Medicine Gastroenterology
DX: Z12.11 Encounter for screening for malignant neoplasm of colon (principal); D12.4 Benign neoplasm of descending colon; K57.30 Diverticulosis of large intestine without perforation or abscess without bleeding; E78.5 Hyperlipidemia, unspecified; Z79.899 Other long term (current) drug therapy; Z88.1 Allergy status to other antibiotic agents
CPT/HCPCS: 88305; 45385; J2704

== ENCOUNTER → 2023-08-06 | Outpatient (CLI) | payer BC ==
[2023-08-06 13:01] VITALS: BP 126/72; PULSE 60; RESP 16; TEMP 97.5
--- NOTE | 2023-08-06 13:03 | P.PN ---
Subjective Progress Note Date: 08/06/23 Principal diagnosis: fibrocystic disease ibrocystic breast changes Kaylene is a 57-year-old white female who presents for breast examination. She had a bilateral mammogram and ultrasound on 07-13-23 benign BIRADS 1. The patient denies any masses in her breast. She has no pain in her breasts. No nipple discharge or skin changes. Conchis Risk 2.4% we discussed chemoprophylaxis at this time the patient ahs declined and is going to be followed conservatively The patient does drink one cup of coffee per day. nicotine: Negative chocolate: occasional Family history: mother: breast cancer at 85 Hormonal history: Menarche:14 : none menopause: November 2015, at 51 BCP: 2 years hormones: none Past surgical history: wisdom teeth Past Medical History: negative Social History: smoke: none alcohol:daily/3-4 beers/day drugs: none - Constitutional Constitutional: Reports sweats - EENT Eyes: Ears: Ears, nose, mouth and throat: Denies headache, Denies sore throat - Breasts Breasts: - Cardiovascular Cardiovascular: Denies chest pain, Denies shortness of breath - Respiratory Respiratory: Denies cough - Gastrointestinal Gastrointestinal: Denies abdominal pain, Denies diarrhea, Denies nausea, Denies vomiting - Genitourinary (Female) Genitourinary: Denies dysuria, Denies hematuria - Menstruation Menstruation: Reports postmenopausal - Musculoskeletal Musculoskeletal: Denies myalgias - Integumentary Integumentary: Reports pruritus, Denies rash - Neurological Neurological: Denies numbness, Denies weakness - Psychiatric Psychiatric: Reports anxiety, Denies depression - Endocrine Endocrine: Denies fatigue, Denies weight change - Hematologic/Lymphatic Comment: none - Allergic/Immunologic Comment: atopic dermatitis Objective - Vital Signs Vital signs: Vital Signs Temp 97.5 F L 08/06/23 12:49 Pulse 60 08/06/23 12:49 Resp 16 08/06/23 12:49 BP 126/72 08/06/23 12:49 Pulse Ox 97 08/06/23 12:49 FiO2 Intake & Output 08/05/23 08/06/23 08/06/23 18:59 06:59 18:59 Weight 54.431 kg - Constitutional General appearance: Present: cooperative - EENT Eyes: Present: EOMI ENT: Present: hearing grossly normal - Neck Neck: Present: normal ROM - Respiratory Respiratory: bilateral: CTA - Cardiovascular Heart sounds: normal: S1, S2 - Integumentary Integumentary: Present: normal turgor - Musculoskeletal Musculoskeletal: Present: gait normal - Psychiatric Psychiatric: Present: A&O x's 3, appropriate affect, intact judgment & insight - Additional findings Additional findings: Breast Exam: BRA: 34B Inspection: Bilateral grade 2 ptosis Palpation: Right breast: Multi-positional exam extremely dense breast with nodularity believed to be fibrocystic change Right axilla: Shoddy adenopathy Left breast: Multi-positional exam extremely dense breast with nodularity believed to be fibrocystic change Left axilla: No adenopathy of concern Assessment and Plan Assessment: Impression: Dense fibrocystic breast Bilateral mammogram, and ultrasound 07-13-23 benign BIRADS 1 Conchis risk 2.4% We have discussed hormone chemoprevention and the patient has declined Plan: Bilateral breast ultrasound and mammogram in 1 year with follow up after that Patient will follow up sooner any questions or concerns CC: DR. Toan Colin
== END ==
LOC: WWCWWP 12:35
PROVIDERS: ATTEND Surgery
DX: N60.19 Diffuse cystic mastopathy of unspecified breast (principal); Z80.3 Family history of malignant neoplasm of breast; Z88.8 Allergy status to other drugs, medicaments and biological substances

== ENCOUNTER 2023-10-30 17:51 | Emergency (ER) | payer BC ==
[2023-10-30 18:14] VITALS: TEMP 97.5
[2023-10-30] MEDS: LIDOCAINE 1% INJ 10MG/ML (20 ML MDV) SQ ONE (18:44)
[2023-10-30] MEDS: DIPH,PERTUS(ACELL)TETVAC-LF 0.5 ML VIAL IM ONE (18:46)
--- NOTE | 2023-10-30 19:17 | ED ---
General Adult HPI - General Chief complaint: Wound/Laceration Stated complaint: Left thumb laceration Time Seen by Provider: 10/30/23 18:00 Source: patient, RN notes reviewed Mode of arrival: ambulatory Limitations: no limitations - History of Present Illness Initial comments: 58-year-old female presents to the emergency department for evaluation of left thumb laceration. States that she was cutting bread for dinner with a bread knife and accidentally cut dorsal aspect of her left thumb. Reports normal range of motion. Unsure of the date of her last tetanus vaccination, greater than 10 years ago. - Related Data Home Medications Medication Instructions Recorded Confirmed Dupilumab [Dupixent Pen] 300 mg SQ Q14D 06/27/21 08/06/23 Atorvastatin [Lipitor] 20 mg PO DAILY 07/20/23 08/06/23 Multivit-Min/Iron Fum/Folic AC 1 each PO DAILY 07/20/23 08/06/23 [One-A-Day Women's Complete Tab] Allergies Allergy/AdvReac Type Severity Reaction Status Date / Time tetracycline [Tetracycline] Allergy Unknown Rash/Hives Verified 08/06/23 12:49 Review of Systems ROS Statement: Those systems with pertinent positive or pertinent negative responses have been documented in the HPI. ROS Other: All systems not noted in ROS Statement are negative. Past Medical History Past Medical History: Skin Disorder Additional Past Medical History / Comment(s): ECZEMA, OCCASIONALLY FEELS LIKE SHE HAS A LUMP IN HER THROAT WHEN SHE SWALLOWS-STATES HX OF EGD. History of Any Multi-Drug Resistant Organisms: None Reported Past Surgical History: No Surgical Hx Reported Additional Past Surgical History / Comment(s): WISDOM TEETH UNDER ANESTHESIA. COLONOSCOPY, EGD Past Anesthesia/Blood Transfusion Reactions: No Reported Reaction Past Psychological History: No Psychological Hx Reported Smoking Status: Never smoker Past Alcohol Use History: Occasional Past Drug Use History: None Reported - Past Family History Mother Family Medical History: Cancer Additional Family Medical History / Comment(s): BREAST General Exam Limitations: no limitations General appearance: alert, in no apparent distress Head exam: Present: atraumatic, normocephalic, normal inspection Eye exam: Present: normal appearance, PERRL, EOMI. Absent: scleral icterus, conjunctival injection, periorbital swelling Extremities exam: Present: full ROM, normal capillary refill, other (Distal pulses 2+, 1 cm laceration over the dorsal aspect of the left thumb). Absent: tenderness Neurological exam: Present: alert, oriented X3 Psychiatric exam: Present: normal affect, normal mood Skin exam: Present: warm, dry, normal color, other (1 cm laceration over the dorsal aspect of the left thumb). Absent: intact, rash Course Vital Signs 10/30/23 17:52 Temperature 97.5 F L Pulse Rate 59 L Respiratory 18 Rate Blood Pressure 158/91 O2 Sat by Pulse 100 Oximetry Procedures - Laceration Laceration #1 Consent Obtained: verbal consent Indication: laceration Site: hand Size (cm): 1 Description: flap Depth: simple, single layer Anesthetic Used: lidocaine 1% Anesthesia Technique: local infiltration Pre-repair: wound explored Type of Sutures: other Size of Sutures: 5-0 Number of Sutures: 2 Technique: simple, interrupted Patient Tolerated Procedure: well, no complications Medical Decision Making - Medical Decision Making Was pt. sent in by a medical professional or institution (MARGARET Desai, ELECTRIC POWER SUPERINTENDENT, urgent care, hospital, or halfway...) When possible be specific @ -No Did you speak to anyone other than the patient for history (EMS, parent, family, police, friend...)? What history was obtained from this source @ -No Did you review nursing and triage notes (agree or disagree)? Why? @ -I reviewed and agree with nursing and triage notes Were old charts reviewed (outside hosp., previous admission, EMS record, old EKG, old radiological studies, urgent care reports/EKG's, halfway records)? Report findings @ -No old charts were reviewed Differential Diagnosis (chest pain, altered mental status, abdominal pain women, abdominal pain men, vaginal bleeding, weakness, fever, dyspnea, syncope, headache, dizziness, GI bleed, back pain, seizure, CVA, palpatations, mental health, musculoskeletal)? @ -Laceration, abrasion, fracture, tendon injury, this list is not all inclusive EKG interpreted by me (3pts min.). @ -None X-rays interpreted by me (1pt min.). @ -None done CT interpreted by me (1pt min.). @ -None done U/S interpreted by me (1pt. min.). @ -None done What testing was considered but not performed or refused? (CT, X-rays, U/S, labs)? Why? @ -None What meds were considered but not given or refused? Why? @ -None Did you discuss the management of the patient with other professionals (professionals i.e. , PA, ELECTRIC POWER SUPERINTENDENT, lab, RT, psych nurse, social media community manager, airplane pilot, teacher, medical information officer, oil field caser)? Give summary @ -No Was smoking cessation discussed for >3mins.? @ -No Was critical care preformed (if so, how long)? @ -No Were there social determinants of health that impacted care today? How? (Homelessness, low income, unemployed, alcoholism, drug addiction, transportation, low edu. Level, literacy, decrease access to med. care, nursing home, rehab)? @ -No Was there de-escalation of care discussed even if they declined (Discuss DNR or withdrawal of care, Hospice)? DNR status @ -No What co-morbidities impacted this encounter? (DM, HTN, Smoking, COPD, CAD, Cancer, CVA, ARF, Chemo, Hep., AIDS, mental health diagnosis, sleep apnea, morbid obesity)? @ -None Was patient admitted / discharged? Hospital course, mention meds given and ro [place], prescriptions, significant lab abnormalities, going to OR and other pertinent info. @ -Discharged. Patient presented to the emergency department for evaluation of thumb laceration. She has full range of motion of the thumb, normal cap refill. Wound was irrigated and repaired. advised on suture removal time and wound care. Tetanus vaccination updated. patient understanding agreeable with plan. Patient stable at time of discharge. Case discussed with Dr. Hinton Undiagnosed new problem with uncertain prognosis? @ -No Drug Therapy requiring intensive monitoring for toxicity (Heparin, Nitro, Insulin, Cardizem)? @ -No Were any procedures done? @ -Laceration repair Diagnosis/symptom? @ -Laceration Acute, or Chronic, or Acute on Chronic? @ -Acute Uncomplicated (without systemic symptoms) or Complicated (systemic symptoms)? @ -Uncomplicated Side effects of treatment? @ -No Exacerbation, Progression, or Severe Exacerbation? @ -No Poses a threat to life or bodily function? How? (Chest pain, [place], [place], pneumonia, PE, COPD, DKA, ARF, appy, cholecystitis, CVA, Diverticulitis, Homicidal, Suicidal, threat to staff... and all critical care pts) @ -No Disposition Clinical Impression: Laceration Disposition: HOME SELF-CARE Condition: Stable Instructions (If sedation given, give patient instructions): Care For Your Stitches (ED) Additional Instructions: Have stitches removed in around 1 week. Keep wound clean and dry. Return to the emergency department for new or worsening symptoms. Is patient prescribed a controlled substance at d/c from ED?: No Referrals: Toan Colin DO [Primary Care Provider] - 1-2 days
[2023-10-30 19:42] VITALS: BP 143/84; PULSE 62; RESP 16
== END 2023-10-30 19:35 | disposition home or self-care (01) ==
LOC: EC 17:51
DX: S61.012A Laceration without foreign body of left thumb without damage to nail, initial encounter (principal); Z88.8 Allergy status to other drugs, medicaments and biological substances; Z23 Encounter for immunization; W26.8XXA Contact with other sharp object(s), not elsewhere classified, initial encounter
CPT/HCPCS: 90715; 99282; 90471; 12001; J2001

== ENCOUNTER → 2024-07-15 | Outpatient (CLI) | payer BC ==
--- NOTE | 2024-07-15 10:08 | BD ---
EXAMINATION TYPE: Axial Bone Density DATE OF EXAM: 07/15/2024 CLINICAL HISTORY: 59 years old Female. ICD-10 CODE: Z78.0 POST MENOPAUSAL WO HRT , Additional Histor y: Height: 66.3 Weight: 109 FRAX RISK QUESTIONS: Glucocorticoids (More than 3mos): steroid injections for pain (Ex: prednisone, prednisolone, methylprednisolone, dexamethasone, and hydrocortisone). History of Fracture in Adulthood: no 3. Menopause before 45: no at 50 yrs old RISK FACTORS HISTORY OF: MEDICATIONS: vit d2, steroid injections EXAM MEASUREMENTS: Bone mineral densitometry was performed using the Bridj System. Bone mineral density as measured about the Lumbar spine is: ----- L1-L4(G/cm2): 1.177 T Score Values are as follows: ----- L1: -1.6 ----- L2: 0.3 ----- L3: 0.7 ----- L4: 0.4 ----- L1-L4: 0.0 Z Score Values are as follows: ----- L1: -0.1 ----- L2: 1.8 ----- L3: 2.2 ----- L4: 1.9 ----- L1-L4: 1.5 Bone mineral density is a baseline study for her today. Bone mineral density about the R hip (g/cm2): 0.846 Bone mineral density about the L hip (g/cm2): 0.850 T Score values are as follows: -----R Neck: -2.1 -----L Neck: -2.0 -----R Total: -1.3 -----L Total: -1.3 Z Score values are as follows: -----R Neck: -0.7 -----L Neck: -0.5 -----R Total: -0.1 -----L Total: -0.1 Bone mineral density is her first dexa study today, baseline. FRAX%s: The graph provided illustrates a 12.0% chance for a major osteoporotic fx and a 2.1% chance f or the hips probability for fx in 10 years time. IMPRESSION: Normal (Values between +1 and -1 indicate normal bone mass). Consider repeating this study in 5 year s or sooner if there is some new clinical indication. NOTE: T-SCORE=SD OF THE YOUNG ADULT MEAN. [facility], , 07/15/2024 10:06 AM
== END | disposition home or self-care (01) ==
LOC: RADBDWWP 08:40
PROVIDERS: ATTEND Family Medicine
DX: Z78.0 Asymptomatic menopausal state (principal)
CPT/HCPCS: 77080

== ENCOUNTER → 2024-07-15 | Outpatient (CLI) | payer BC ==
--- NOTE | 2024-07-18 17:39 | MM ---
Reason for Exam: Screening (asymptomatic). Last screening mammogram was performed 12 month(s) ago. Patient History: Menarche at age 15. Patient has no children. Postmenopausal. Mother had breast cancer, age 84. Risk Values: Karis 5 year model risk: 2.5%. NCI Lifetime model risk: 14.9%. Prior Study Comparison: 06/27/2021 Bilateral Screening Mammogram, [facility]. 06/30/2022 Bilateral MG 3D screening mammo w/cad, [facility]. 07/13/2023 Bilateral MG 3D diag mammo w/cad YANIRA, [facility]. Tissue Density: The breasts are extremely dense, which lowers the sensitivity of mammography. Findings: Analyzed By CAD. Regional punctate calcifications are redemonstrated on both sides. Areas of asymmetric density are unchanged. There is no suspicious group of microcalcifications or new suspicious mass in either breast. Overall Assessment: Benign, BI-RAD 2 Management: Screening Mammogram of both breasts in 1 year. Given the patient's extremely dense breast tissue, supplementary screening with breast ultrasound or MRI can be considered. Patient should continue monthly self-breast exams. A clinical breast exam by your physician is recommended on an annual basis. This exam should not preclude additional follow-up of suspicious palpable abnormalities. Note on Karis scores and lifetime risk: 1. A Karis score greater than 3% is considered moderate risk. If this is the case, consider specialist referral to assess eligibility for a risk reducing agent. 2. If overall lifetime risk for the development of breast cancer is 20% or higher, the patient may qualify for future screening with alternating mammogram and breast MRI. [facility], , 07/18/2024 5:36 PM. Electronically signed and approved by: Martínez Lou DO
== END | disposition home or self-care (01) ==
LOC: RADMAMWWP 08:43
PROVIDERS: ATTEND Surgery
DX: Z12.31 Encounter for screening mammogram for malignant neoplasm of breast (principal); Z78.0 Asymptomatic menopausal state; Z80.3 Family history of malignant neoplasm of breast; R92.343 Mammographic extreme density, bilateral breasts
CPT/HCPCS: 77063; 77067

== ENCOUNTER → 2024-09-22 | Outpatient (CLI) | payer BC ==
[2024-09-22 11:31] VITALS: BP 119/74; PULSE 75; RESP 16; TEMP 98
--- NOTE | 2024-09-22 11:42 | P.PN ---
Subjective Progress Note Date: 09/22/24 Principal diagnosis: fibrocystic breast disease 09-22-24 Principal diagnosis: fibrocystic disease ibrocystic breast changes Kaylene is a 59-year-old white female who presents for breast examination. She had a bilateral mammogram on 07-15-24 which was personally intrepreted and is BIRAD 2 . Her breasts are extremely dense. The patient denies any masses in her breast. She has no pain in her breasts. No nipple discharge or skin changes. Conchis Risk 2.5% we discussed chemoprophylaxis at this time the patient has declined and is going to be followed conservatively NCI lifetime risk 14.9% The patient does drink one cup of coffee per day. nicotine: Negative chocolate: occasional Family history: mother: breast cancer at 85 Hormonal history: Menarche:14 : none menopause: November 2015, at 51 BCP: 2 years hormones: none Past surgical history: wisdom teeth Past Medical History: negative Social History: smoke: none alcohol:daily/3-4 beers/day drugs: none - Constitutional Constitutional: Reports sweats - EENT Eyes: Ears: Ears, nose, mouth and throat: Denies headache, Denies sore throat - Breasts Breasts: - Cardiovascular Cardiovascular: Denies chest pain, Denies shortness of breath - Respiratory Respiratory: Denies cough - Gastrointestinal Gastrointestinal: Denies abdominal pain, Denies diarrhea, Denies nausea, Denies vomiting - Genitourinary (Female) Genitourinary: Denies dysuria, Denies hematuria - Menstruation Menstruation: Reports postmenopausal - Musculoskeletal Musculoskeletal: Denies myalgias - Integumentary Integumentary: Reports pruritus, Denies rash - Neurological Neurological: Denies numbness, Denies weakness - Psychiatric Psychiatric: Reports anxiety, Denies depression - Endocrine Endocrine: Denies fatigue, Denies weight change - Hematologic/Lymphatic Comment: none - Allergic/Immunologic Comment: atopic dermatitis Objective - Vital Signs Vital signs: Vital Signs Temp 98.0 F 09/22/24 11:28 Pulse 75 09/22/24 11:28 Resp 16 09/22/24 11:28 BP 119/74 09/22/24 11:28 Pulse Ox 99 09/22/24 11:28 FiO2 Intake & Output 09/21/24 09/22/24 09/22/24 18:59 06:59 18:59 Weight 54.431 kg - Constitutional General appearance: Present: cooperative - EENT Eyes: Present: EOMI ENT: Present: hearing grossly normal - Neck Neck: Present: normal ROM - Respiratory Respiratory: bilateral: CTA - Cardiovascular Rhythm: regular Heart sounds: normal: S1, S2 - Integumentary Integumentary: Present: normal turgor - Musculoskeletal Musculoskeletal: Present: gait normal - Psychiatric Psychiatric: Present: A&O x's 3, appropriate affect, intact judgment & insight - Additional findings Additional findings: Breast Exam: BRA: 34B Inspection: Bilateral grade 2 ptosis Palpation: Right breast: Multi-positional exam extremely dense breast with nodularity believed to be fibrocystic change; greatest density in the UOQ Right axilla: Shoddy adenopathy Left breast: Multi-positional exam extremely dense breast with nodularity believed to be fibrocystic change Left axilla: No adenopathy of concern Assessment and Plan Assessment: Impression: Dense fibrocystic breast Bilateral mammogram 07-15-24 BIRAD 2 Conchis risk 2.5% We have discussed hormone chemoprevention and the patient has declined Nodularity upper outer quadrant of the right breast Plan: Bilateral mammogram in June 2025 with follow up after that Patient will follow up sooner any questions or concerns Bilateral breast MRI secondary to her very dense breast ultrasound right breast upper outer quadrant to evaluate the dense area which is more palpable than the surrounding tissue follow-up after ultrasound CC: DR. Toan Colin
== END ==
LOC: WWCWWP 10:52
PROVIDERS: ATTEND Surgery
DX: R92.323 Mammographic fibroglandular density, bilateral breasts (principal); Z80.3 Family history of malignant neoplasm of breast; Z88.1 Allergy status to other antibiotic agents

== ENCOUNTER → 2024-10-13 | Outpatient (CLI) | payer BC ==
--- NOTE | 2024-10-14 15:08 | BMR ---
EXAM DATE: 10/13/2024 EXAM DESCRIPTION: MRI-Breast Bilat (W/WO Contrast) INDICATION: Strong MBC breast cancer. Dense breast parenchyma. High-risk screening. COMPARISON: Prior mammogram dated 07/15/2024. Correlation is also made with the right breast ultrasound dated 10/04/2024 CONTRAST: 7.0 cc Gadavist contrast material. TECHNIQUE: Multi sequence multiplanar MR imaging of the breasts was obtained. Subsequently, after the uneventful intravenous administration of Gadavist contrast material, 6 dynamic sequences were then obtained. Post processing was performed utilizing a [employer] CAD workstation. FINDINGS: The breasts are composed of extreme fibroglandular tissue. There is mild background parenchymal enhancement identified. No axillary or internal mammary lymphadenopathy. No focal skin thickening or nipple retraction. The bone marrow signal intensity is unremarkable. T2 weighted images demonstrated a few subcentimeter T2 bright lesions in both breasts likely related to fibrocystic changes. Trace amount of fluid in the pleural spaces likely physiological. Post contrast images demonstrated no abnormal enhancement in either breast to suggest malignancy. Several foci of progressive enhancements in both breasts are likely related to benign background parenchyma There is no abnormal signal or enhancement in the chest wall or subcutaneous tissue. IMPRESSION: 1. No MR evidence of malignancy in either breast. 2. No axillary or internal mammary lymphadenopathy. Final assessment: BI-RADS category 2: Benign findings MTDD
== END | disposition home or self-care (01) ==
LOC: RADMRIMAIN 18:22
PROVIDERS: ATTEND Surgery
DX: R92.8 Other abnormal and inconclusive findings on diagnostic imaging of breast (principal); R92.30 Dense breasts, unspecified
CPT/HCPCS: 77049; A9585